=== PATIENT | female | born 1970 | race Caucasian/White ===

== ENCOUNTER 2017-05-04 08:00 | Outpatient (CLI) | payer OTHER ==
[2017-05-04 19:09] LABS: H. PYLORI IGG ANTIBODY Negative (Negative); HPYLORI NEG QC Negative (Negative); HPYLORI POS QC POSITIVE (Positive)
[2017-05-04 19:11] LABS: BASOPHILS # (AUTO) 0.1 10^3/uL (0.0-0.1); BASOPHILS % (AUTO) 0.9 %; EOSINOPHILS # (AUTO) 0.1 10^3/uL (0.0-0.7); HCT - HEMATOCRIT 37.6 % (37.0-47.0); HGB - HEMOGLOBIN 12.6 g/dL (12.0-16.0); LYMPHOCYTES # (AUTO) 1.9 10^3/uL (1.5-3.5); LYMPHOCYTES % (AUTO) 30.7 %; MEAN CORPUSCULAR HEMOGLOBIN 31.1 pg (27.0-31.0); MEAN CORPUSCULAR HGB CONC 33.7 g/dL (32.0-36.0); MEAN CORPUSCULAR VOLUME 92.5 fL (81.0-99.0); MEAN PLATELET VOLUME 9.1 fL (7.9-10.8); MONOCYTES # (AUTO) 0.5 10^3/uL (0.0-1.0); MONOCYTES % (AUTO) 7.8 %; NEUTROPHILS # (AUTO) 3.7 10^3/uL (1.5-6.6); NEUTROPHILS % (AUTO) 58.6 %; NUCLEATED RED BLOOD CELLS AUTO 0.1 /100WBC; RED BLOOD COUNT 4.06 10^6/uL (4.20-5.40); RED CELL DISTRIBUTION WIDTH 13.2 % (12.0-15.0); UNCORRECTED WHITE BLOOD COUNT 6.3 x10^3/uL; WHITE BLOOD COUNT 6.3 x10^3/uL (4.8-10.8)
[2017-05-04 19:20] LABS: ALBUMIN/GLOBULIN RATIO 1.2 (1.0-2.2); BILIRUBIN,TOTAL 1.8 mg/dL (0.2-1.0); CALCIUM 9.3 mg/dL (8.5-10.3); CREATININE 0.8 mg/dL (0.4-1.0); POTASSIUM 3.9 mmol/L (3.5-5.0); TOTAL PROTEIN 7.8 g/dL (6.7-8.2)
== END 2017-05-04 08:01 | disposition home or self-care (01) ==
LOC: LAB.WCP 08:00
PROVIDERS: ATTEND Family Medicine
DX: K30 Functional dyspepsia (principal); R30.0 Dysuria
CPT/HCPCS: 36415; 80053; 85025; 87339

== ENCOUNTER 2017-05-05 15:20 | Outpatient (CLI) | payer OTHER | END 2017-05-05 15:21 | disposition home or self-care (01) | LOC: LAB.R 15:20 | PROVIDERS: ATTEND Family Medicine | DX: R30.0 Dysuria (principal) | CPT/HCPCS: 87086 ==

== ENCOUNTER 2018-01-07 15:04 | Outpatient (CLI) | payer BC, OTHER ==
--- NOTE | 2018-01-07 20:58 | Ultrasound Report ---
EXAM: PELVIC ULTRASOUND EXAM DATE: 01/07/2018 03:23 PM. CLINICAL HISTORY: Pelvic and perineal pain. COMPARISON: None. TECHNIQUE: Realtime transabdominal pelvic scan performed to identify the uterus and adnexa and as an overview of other pelvic structures, followed by transvaginal scan to provide greater detail of the u terus and adnexa, with static image documentation. FINDINGS: Uterus: Anteverted position. 8.5 x 3.8 x 4.0 cm, volume 69 cc. Overall heterogeneous myometrial echot exture with a solitary posterior intramural myoma measuring 1.9 x 1.3 x 1.9 cm. Endometrium: 3 mm. Few tiny calcifications. No abnormal vascularity. Cervix: Multiple nabothian cysts. Avascular soft tissue structure in the endocervical canal measuring 0.6 x 0.5 x 0.6 cm. Right Ovary: 1.8 x 1.0 x 1.6 cm, volume 1.5 cc. Normal echotexture. Left Ovary: 2.8 x 1.8 x 1.9 cm, volume 5.0 cc. Normal echotexture. Free Fluid: None. Other: None. IMPRESSION: 1. Solitary larger intramural uterine myoma. 2. Suspected endocervical polyp. Recommend direct evaluation. 3. Unremarkable sonographic appearance of the ovaries. [facility] Referring Provider Line: [phone] SITE ID: [id number]
== END 2018-01-07 15:05 | disposition home or self-care (01) ==
LOC: DI 15:04
PROVIDERS: ATTEND Obstetrics & Gynecology
DX: R10.2 Pelvic and perineal pain (principal); D25.1 Intramural leiomyoma of uterus
CPT/HCPCS: 76830; 76856

== ENCOUNTER 2018-02-28 13:54 | Outpatient (CLI) | payer BC, OTHER | END 2018-02-28 13:55 | disposition home or self-care (01) | LOC: LAB.R 13:54 | PROVIDERS: ATTEND Nurse Practitioner Obstetrics & Gynecology | DX: R30.0 Dysuria (principal) | CPT/HCPCS: 87086 ==

== ENCOUNTER 2018-05-01 14:40 | Outpatient (CLI) | payer BC, OTHER ==
[2018-05-01 15:01] LABS: BASOPHILS # (AUTO) 0.1 10^3/uL (0.0-0.1); BASOPHILS % (AUTO) 0.9 %; EOSINOPHILS # (AUTO) 0.2 10^3/uL (0.0-0.7); EOSINOPHILS % (AUTO) 2.1 %; HGB - HEMOGLOBIN 12.5 g/dL (12.0-16.0); LYMPHOCYTES # (AUTO) 2.4 10^3/uL (1.5-3.5); MEAN CORPUSCULAR HEMOGLOBIN 31.4 pg (27.0-31.0); MEAN CORPUSCULAR HGB CONC 34.6 g/dL (32.0-36.0); MEAN CORPUSCULAR VOLUME 90.8 fL (81.0-99.0); MEAN PLATELET VOLUME 8.4 fL (7.9-10.8); MONOCYTES # (AUTO) 0.6 10^3/uL (0.0-1.0); MONOCYTES % (AUTO) 7.9 %; NEUTROPHILS # (AUTO) 4.3 10^3/uL (1.5-6.6); NEUTROPHILS % (AUTO) 57.1 %; PLT - PLATELET COUNT 179 10^3/uL (130-450); RED BLOOD COUNT 3.97 10^6/uL (4.20-5.40); RED CELL DISTRIBUTION WIDTH 13.6 % (12.0-15.0); WHITE BLOOD COUNT 7.5 x10^3/uL (4.8-10.8)
[2018-05-01 15:14] LABS: BILIRUBIN,URINE NEGATIVE (NEGATIVE); GLUCOSE, URINE (UA) NEGATIVE (NEGATIVE); KETONES,URINE (UA) NEGATIVE (NEGATIVE); LEUKOCYTE ESTERASE, URINE NEGATIVE (NEGATIVE); NITRITE,URINE NEGATIVE (NEGATIVE); OCCULT BLOOD,URINE SMALL (NEGATIVE); PH,URINE 5.5 PH (5.0-7.5); PROTEIN,URINE NEGATIVE (NEGATIVE); UROBILINOGEN,URINE 0.2 (NORMAL) E.U./dL (NORMAL)
[2018-05-01 15:21] LABS: CLARITY,URINE HAZY (CLEAR); HCG UR QUAL NEGATIVE
== END 2018-05-01 14:41 | disposition home or self-care (01) ==
LOC: LAB 14:40
PROVIDERS: ATTEND Obstetrics & Gynecology
DX: Z01.812 Encounter for preprocedural laboratory examination (principal); N94.4 Primary dysmenorrhea; R10.2 Pelvic and perineal pain; N92.0 Excessive and frequent menstruation with regular cycle
CPT/HCPCS: 36415; 81003; 81025; 85025

== ENCOUNTER 2018-05-03 07:00 | Day surgery (SDC) | payer BC, OTHER ==
--- NOTE | 2018-05-02 10:51 | PREOP HISTORY & PHYSICAL ---
DATE OF SERVICE: 05/03/2018 Physician: Philipp Kaufman MD DIAGNOSES 1. Pelvic pain; severe dysmenorrhea, failing medical treatment. 2. Intramural fibroid. 3. Endocervical nodule. 4. Desires sterilization. HISTORY OF PRESENT ILLNESS: Patient is a 48-year-old , 1, para 1 ( x1) woman who notes severe dysmenorrhea, scale 7/10 that interferes with her daily activities and ability to function. Additionally, she notes low back ache. She has regular menses that last for 5-6 days, but has 4 days of clots. The clots and associated heavy bleeding are disruptive, occasionally soaking through to her clothing. In the past, she had used combination oral contraceptives; however, due to her age status, this is no longer an option. For the pain, she has taken numerous NSAIDS including ibuprofen that gave some but not complete pain relief. She had used oxycodone ( from another provider) in the past that seemed to be effective, but narcotic therapy for her chronic pain is not recommended practice. She had an ultrasound in 03/2018 that documented a slightly enlarged uterus with a 1.9 x 1.3 x 1.9 solitary intramural fibroid. Additionally, there was a 0.6 cm endocervical nodule noted. There was no ovarian pathology. The endometrial stripe was 3 mm. Due to the small dimensions of the endometrial stripe, endometrial biopsy was not indicated. Bleeding is quite heavy in the first days of the menses and she saturates pads every 4 hours, making it difficult not to soil her clothing. Prior contraceptive measures include oral contraceptives, IUD, and patches. She has no abnormal Pap history, and her last Pap smear was in 2013, and reported as normal. Beyond her pelvic pain associated with menses, she notes cyclic right shoulder pain that is premenstrual and menstrual. It is a deep, but not mechanical pain. 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 She has been diagnosed in the past with impingement and arthritis. She mostly self- manages by exercise and stretch. Often the pain causes her to want to splint. She has not had a recent orthopedic evaluation or MRI. She was cautioned that laparoscopy is unlikely to find an origin or association with this right shoulder pain. 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 PAST MEDICAL HISTORY: Patient has no chronic disease history. ALLERGIES: SEASONAL ALLERGIES, POLLEN AND DUST. NO KNOWN DRUG ALLERGIES. MEDICATIONS 1. Ibuprofen. 2. Valtrex. PAST SURGICAL HISTORY: section in 2007, failure for the cervix to dilate during induction. Prior to that in 2006, she had an uneventful spontaneous . FAMILY HISTORY: Negative diabetes. Positive CVA. Paternal grandfather and paternal uncles hypertension. Paternal grandmother rheumatoid arthritis. No easy bleeding tendencies or thromboembolic disease. 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 Coffee drinker. REVIEW OF SYSTEMS CONSTITUTIONAL: Negative. PULMONARY: Negative. CARDIOVASCULAR: Negative. BREASTS: Negative. ENDOCRINE: Negative. GASTROINTESTINAL: Negative. MUSCULOSKELETAL: Back and shoulder pain as noted before. NEUROLOGIC: Negative. DERMATOLOGIC: Negative. HEMATOLOGIC/LYMPHATIC: Denies easy bleeding tendency or bruising. PHYSICAL EXAMINATION GENERAL: Alert, cooperative, pleasant demeanor, athletic frame. HEENT: Nonicteric sclerae. EOMI. Dentition in good repair. No thyromegaly. NECK: Supple. LUNGS: Clear to auscultation. CARDIAC: Regular. No murmur, no gallop. BREASTS: Deferred. ABDOMEN: Soft, nondistended, no organomegaly. No focal tenderness or rebound. GENITALIA: No lesions. Normal hair distribution. VAGINA: Old blood in vault. CERVIX: Closed, firm. UTERUS: 5-6 weeks' size, globular. ADNEXA: Normal right and left ovary. MUSCULOSKELETAL: Grossly intact. Moves all four extremities well. NEUROLOGIC: Grossly intact, cranial nerves intact. PSYCHOLOGIC: Normal demeanor. No anxiety or evident depression. LABORATORY DATA: Preop labs pending. ASSESSMENT: Patient has disruptive pelvic pain/dysmenorrhea coupled with heavy uterine bleeding. She has a known intramural fibroid, but on ultrasound, there is no submucosal disruption noted. Hysteroscopy will help define the fibroid and its possible relationship to her bleeding. Patient does not desire a hysterectomy. Therefore, endometrial ablation and myomectomy, if fibroid is found to have a submucosal component, is indicated. She is cautioned that her shoulder pain, though cyclic with her menses, is probably not directly caused by the menses, other than fluid retention and possible increased impingement. PLAN: We will perform a laparoscopy to do a bilateral salpingectomy, to meet her sterilization goals as well as cancer reduction. Her bleeding should be remedied with endometrial ablation using NovaSure. If there is a definite submucosal component to her fibroid, myomectomy will be performed. Additionally , if there is an endocervical polyp, this will be removed at the same time. Reviewed risks, benefits with the patient. [facility] brochures reviewed. All questions answered. TD: 05/02/2018 08:54 REGINA
[2018-05-03 07:31] LABS: HCG UR QUAL NEGATIVE
[2018-05-03] MEDS ORDERED: LACTATED RINGERS 1,000 ML IV ONE (07:35)
[2018-05-03] MEDS ORDERED: BUPIVACAINE 0.25%-EPI 1:200000 PF 30 ML VIAL ONE (08:12)
--- NOTE | 2018-05-03 08:16 | ANESTHESIA ---
Pre-Anesthesia VS, & Labs - Diagnosis Pelvic pain, dysmenorrhea, desires sterilization - Procedure Hysteroscopy with novasure endometrial ablation, Laparoscopy Vital Signs: Temp Pulse Resp BP Pulse Ox 36.8 C 16 120/68 99 05/03/18 07:22 05/03/18 07:22 05/03/18 07:22 05/03/18 07:22 Pulse 56 Height 5 ft 5 in Weight (kg) 68.4 kg - NPO >8 hours - Is Patient ?: No - Lab Results Lab results reviewed: Yes Other Lab Results: HCG negative Home Medications and Allergies Home Medications: Ambulatory Orders Medication Instructions Recorded Confirmed Ibuprofen [Motrin] 600 tab PO PRN PRN 05/03/18 05/03/18 Valacyclovir HCl [Valtrex] 500 mg PO 1-2XD 05/03/18 05/03/18 Allergies/Adverse Reactions: Allergies Allergy/AdvReac Type Severity Reaction Status Date / Time No Known Drug Allergies Allergy Verified 05/03/18 07:39 Anes History & Medical History - Anesthetic History Family history of Anesthesia Complications: Denies Family history of Malignant Hyperthermia: Denies - Medical History Cardiovascular: reports: None Pulmonary: reports: None Gastrointestinal: reports: None Urinary: reports: Kidney stones (History of kidney stones) Neuro: reports: None Musculoskeletal: reports: Chronic back pain Endocrine/Autoimmune: reports: None Blood Disorders: reports: None Skin: reports: None Smoking Status: Never smoker Psychosocial: reports: No issues indicated - Surgical History Gynecologic: section Exam General: Alert, Oriented x3, Cooperative, No acute distress Dental: WNL Mouth Openin Fingerbreadth Neck Mobility: Normal Mallampati classification: I Thyromental Distance: 4-6 cm Respiratory: Lungs clear, Normal breath sounds, No respiratory distress, No accessory muscle use Cardiovascular: Regular rate, Normal S1, Normal S2, No murmurs Mental/Cognitive Status: Alert/Oriented X3, Normal for patient Cognitive Status: Within normal limits Plan Anesthesia Type: General Consent for Procedure(s) Verified and Reviewed: Yes Code Status: Attempt Resuscitation ASA classification: 1-Healthy patient Is this case an emergency?: No
[2018-05-03] MEDS ORDERED: BUPIVACAINE 0.25%-EPI 1:200000 PF 30 ML VIAL SUBQ ONE ×2 (09:33)
[2018-05-03] MEDS ORDERED: ROCURONIUM 50 MG/5 ML VIAL IVP ONE (10:16)
[2018-05-03] MEDS ORDERED: ONDANSETRON 4 MG/2 ML VIAL IVP ONE (10:16)
[2018-05-03] MEDS ORDERED: PROPOFOL 200 MG/20 ML VIAL IVP ONE (10:16)
[2018-05-03] MEDS ORDERED: EPINEPHrine 1 MG/ML VIAL IV ONE (10:16)
[2018-05-03] MEDS ORDERED: MIDAZOLAM 2 MG/2 ML VIAL IVP ONE (10:16)
[2018-05-03] MEDS ORDERED: fentaNYL 250 MCG/5 ML VIAL IVP ONE (10:16)
[2018-05-03] MEDS ORDERED: KETOROLAC 30 MG/ML VIAL IVP ONE (10:16)
[2018-05-03] MEDS ORDERED: NEOSTIGMINE 1 MG/1 ML 10 ML MDV IVP ONE (10:16)
--- NOTE | 2018-05-03 10:46 | OPERATIVE REPORT ---
Operative Report - General Pre-Op Diagnosis: Pelvic pain/dysmenorrhea; Menorrhagia; US intramural leiomyoma & polyp Procedure Performed: Diagnostic Laparoscopy; Laparoscopic Bilateral Salpingectomy; Hysteroscopic polypectomy with Myossure; Endometrial ablation with NovaSure; Laparoscopic lysis of abdominal & pelvic pelvic adhesions: . Post Op Diagnosis: Evidence of prior endometriosis inclusive of implant on the right hemidiaph - Procedure Note Primary Surgeon: Philipp Kaufman MD, FACOG, FICS Anesthesia Provider: John Cantu MD Anesthesia Technique: General ET tube Pathology: Polypectomy/endometrial shavings; both tubes, right marked with suture IV Fluids (mL): 900 Estimated Blood Loss (mL): 10 Urine Output (mL): 225 Drain/Tube Type: Other (Calix catheter with clear urine) Complications: None
[2018-05-03 12:01] VITALS: BP 112/43
--- NOTE | 2018-05-03 20:04 | OPERATIVE REPORT ---
DATE OF SERVICE: 05/03/2018 Physician: Philipp Kaufman MD PATIENT'S PCP: Kolby Parr MD. PREOPERATIVE DIAGNOSES 1. Pelvic pain with severe dysmenorrhea not remedied by medical therapy. 2. Menorrhagia. 3. Ultrasound documented intramural leiomyoma and endocervical polyp. 4. Cyclic right shoulder pain. POSTOPERATIVE DIAGNOSES 1. Evidence of endometriosis inclusive of possible implant on right hemidiaphragm. 2. Abdominal and pelvic adhesions inclusive of uterus, bladder, ovaries, and tubes. 3. Submucosal fibroid. 3. Small polypoid growth at the bottom of the lower uterine segment close to superior endocervical os. 4. Nabothian cyst. PROCEDURES 1. Diagnostic laparoscopy. 2. Laparoscopic bilateral salpingectomy. 3. Hysteroscopic polypectomy with MyoSure. 4. Endometrial ablation with NovaSure. 5. Laparoscopic lysis of multiple abdominal and pelvic adhesions. SURGEON: Philipp Kaufman MD, FACOG, FICS. ANESTHESIA: John Holbrook MD. ANESTHESIA TYPE: General, ET tube. PATHOLOGY 1. Polypectomy and endometrial shavings. 2. Both tubes, right marked with suture. IV FLUIDS: 900 mL ESTIMATED BLOOD LOSS: 10 mL URINE OUTPUT: 225 clear. DRAINS: Calix with clear urine. COMPLICATIONS: None. FINDINGS 1. Exam of the external genitalia finds no lesions with normal hair distribution. Vagina has no significant cystorectocele. Remnants of a Cytotec capsule found. The cervix remains tightly closed, but much softer than on preop examination. Uterus is slightly enlarged and globular. On palpation, there are no masses. The uterus is slightly retroflexed. Uterine sounding is 6.5 cm. 2. Hysteroscopy finds the uterus to have a slight septate configuration. There are no submucosal leiomyoma. At the 4-o'clock position near the endocervical junction, there is a small polypoid growth approximately 0.5 cm. Endocervical canal has no obvious fibroids or polyps observed on hysteroscope entry. Post-endometrial ablation: Approximately 90 to 95% of the cavity was treated. Rectovaginal exam did not find any septal masses. 3. Laparoscopy found post- adhesions, as expected, between the bladder and anterior uterine surface. They were thick and dense. There was no endometriosis in the anterior cul-de-sac. In portions of the ovaries and tubes , there were bands of adhesions. The tubes themselves appeared to be open and fluffy. Close examination of the cul-de-sac finds no endometriosis implants. Uterosacral ligaments and ovarian fossa on both sides are clear of any pathology. Appendix appears to be normal. Examination of the upper abdomen finds some sclerotic changes in the liver, but no fatty liver. In the right hemidiaphragm, there are a series of 4 to 5 red smudge-like lesions suspect for endometriosis. Biopsy not taken due to safety concerns and possibility of safety concerns with a possible pneumothorax. TECHNIQUE: Prior to the procedure, the indications and her symptoms were reviewed, the exact procedures and her mechanics reviewed, as well as risks and benefits. Patient confirmed her desires to continue on with the procedures. There is no guarantee of a cure of her various pain complaints. Informed consent paperwork was signed. Patient was brought to the operating room and placed in supine position for administration of general anesthesia. She was uneventfully induced and intubated. She was placed in the low dorsal lithotomy position in [facility]. She was prepped and draped in the customary sterile fashion. Timeout briefing was done per protocol. A Calix was inserted. There was a delay in obtaining a 5 mm laparoscope, and so we proceeded with the hysteroscopy phase of the case first. Clamshell speculum was inserted in the vagina, opened, and the cervix was easily visualized. Anterior cervical lip was grasped with a single-tooth tenaculum. Total sounding was 6.5 cm. Serial application of Hegar probes was done uneventfully to dilate to Hegar size 6. The hysteroscope and fluid balance system was calibrated, and then a second calibration was required. Fluid balance was finished. Hysteroscope video system was then white balanced and calibrated. The hysteroscope was inserted under direct visualization through the endocervical canal. The expected intracervical nodule was not found. The uterine architecture was thoroughly explored. There was a septal growth at midpoint. In the 4-o'clock position in the lower uterine segment, there was a small polypoid region. MyoSure was brought to the field and the polypoid uneventfully shaved clean. The cavity was then lavaged in preparation for NovaSure. Hysteroscope was then removed. NovaSure was brought to the field and calibrated. The cavity width was 3.9 and a length of 6.7. The adjustments were made. The NovaSure screen was deployed, and after safety test activated, the NovaSure was cycled x1. After which, it was removed. Hysteroscopy evaluation found over 90 to 95% of the cavity was treated. At this point, endometrial ablation was terminated. HUMI was then uneventfully placed. Patient was placed in the low dorsal lithotomy position and prepared for laparoscopy. 5 mL of maintenance Marcaine 0.25% with epinephrine was placed under the umbilical skin fold, and a small incision made. Direct entry with a 5 mm trocar port was made. The previously promised 5 mm laparoscope was not available, and so the hysteroscope 30-degree lens was substituted. It was brought to the field and white balanced and calibrated. We ensured an intraabdominal entry, and abdomen was insufflated with CO2 gas under 12 mm pressure. Under direct visualization, right and left lower quadrant 5 mm visiports were placed. The abdomen was assessed and photographed. Peritubal, ovarian, and bladder adhesions were lysed with LigaSure. We next moved to salpingectomy. Each tube was identified with the ovary. The tube was placed on medial tension, and the mesosalpinx was thoroughly desiccated and divided using LigaSure. Postprocedure, operative sites were inspected and found to be hemostatically secure. Complete evaluation of the pelvis and upper abdomen was accomplished. In looking at the right hemidiaphragm, there were a series of red smudged lesions highly suggestive of red endometriosis. Due to the thinness of the diaphragm, safe biopsy could not be accomplished. We made preparations for exit. With patient still in Trendelenburg position, 700 mL of fluid was placed in the abdomen. All gas was vented. Trocars were removed under direct visualization without back bleeding. Skin was closed with interrupted subcuticular stitches of Monocryl 4-0. They were dressed with Dermabond. Additional Marcaine was placed into the wounds. The HUMI manipulator was removed. All sponge, needle, and instrument counts were confirmed as correct. Patient was uneventfully aroused from general anesthesia and taken to the recovery room in stable condition. We reviewed intraoperative events with the patient and photographs. Celebrex will be used for postoperative pain control and Percocet as needed. Patient did receive 30 mg of Toradol IV push during the procedure. All wound care and callback instructions were reviewed. TD: 05/03/2018 11:41 MTDD
== END 2018-05-03 07:01 | disposition home or self-care (01) ==
LOC: SDS 07:00
PROVIDERS: ATTEND Obstetrics & Gynecology
PROC: 0UB98ZZ Excision of Uterus, Via Natural or Artificial Opening Endoscopic (ICD-10-PCS; 2018-05-03)
PROC: 0U5B7ZZ Destruction of Endometrium, Via Natural or Artificial Opening (ICD-10-PCS; principal; 2018-05-03 08:15)
PROC: 0UB74ZZ Excision of Bilateral Fallopian Tubes, Percutaneous Endoscopic Approach (ICD-10-PCS; 2018-05-03 08:15)
DX: N80.9 Endometriosis, unspecified (principal); N94.6 Dysmenorrhea, unspecified; N92.0 Excessive and frequent menstruation with regular cycle; N84.0 Polyp of corpus uteri; N88.8 Other specified noninflammatory disorders of cervix uteri; N99.4 Postprocedural pelvic peritoneal adhesions; D25.0 Submucous leiomyoma of uterus; Z30.2 Encounter for sterilization; G89.29 Other chronic pain; M25.511 Pain in right shoulder; Q51.2 Other doubling of uterus; Z98.891 History of uterine scar from previous surgery; Z86.19 Personal history of other infectious and parasitic diseases
CPT/HCPCS: 58563; 58661; 81025; J0171; J3010; J7120

== ENCOUNTER 2018-08-09 08:00 | Outpatient (CLI) | payer BC, OTHER | END 2018-08-09 23:59 | LOC: LAB.R 08:00 | PROVIDERS: ATTEND Nurse Practitioner Obstetrics & Gynecology | DX: R30.0 Dysuria (principal) | CPT/HCPCS: 87086 ==

== ENCOUNTER 2018-08-11 17:18 | Outpatient (CLI) | payer BC, OTHER ==
--- NOTE | 2018-08-12 14:57 | MRI Report ---
Reason: RADICULOPATHY, CERVICAL REGION Procedure Date: 08/11/2018 Accession Number: [id number] / [id number] Procedure: MRI - Cervical Spine W/O CPT Code: FULL RESULT: EXAM: MRI CERVICAL SPINE WITHOUT CONTRAST EXAM DATE: 08/11/2018 05:34 PM. CLINICAL HISTORY: Worsening neck and right shoulder pain. Cervical radiculopathy. COMPARISONS: None. TECHNIQUE: Multiplanar, multisequence T1-weighted and fluid-sensitive sequences of the cervical spine without contrast. Other: None. FINDINGS: Cervical alignment is anatomic. Vertebral body height is preserved. There is no fracture. Marrow signal is normal. Cervical spinal cord signal is normal. No cerebellar tonsillar ectopia. Axial images demonstrate the following: C2-C3: No central or foraminal stenosis. C3-C4: No central or foraminal stenosis. C4-C5: Tiny midline disk protrusion. No central or foraminal stenosis. C5-C6: Mild diffuse disk bulge and moderate left and mild right uncovertebral hypertrophy lead to very mild left foraminal stenosis but no significant central or right foraminal stenosis. C6-C7: Small broad-based disk extrusion projects into the left lateral recess and medial margin of the left neural foramen and leads to minimal left foraminal stenosis. No central or right foraminal stenosis. C7-T1: Small broad-based disk extrusion projects into the left lateral recess but does not likely cause neurologic impingement. No right-sided central stenosis. No foraminal stenosis. IMPRESSION: 1. Tiny midline disk protrusion without central or foraminal stenosis at C4-C5. 2. Mild diffuse disk bulge and moderate left and mild right uncovertebral hypertrophy at C5-C6 lead to very mild left foraminal stenosis. 3. Small broad-based disk extrusion projecting into the left lateral recess at C6-C7 leads to minimal left foraminal stenosis. 4. Small broad-based disk extrusion at C7-T1 projects into the left lateral recess but does not appear to cause neurologic impingement. 4. No findings to explain right radicular symptoms. [facility]
--- NOTE | 2018-08-12 15:08 | MRI Report ---
Reason: RADICULOPATHY, CERVICAL REGION Procedure Date: 08/11/2018 Accession Number: [id number] / [id number] Procedure: MRI - Shoulder RT W/O CPT Code: FULL RESULT: EXAM: RIGHT SHOULDER MRI WITHOUT CONTRAST EXAM DATE: 08/11/2018 06:31 PM. CLINICAL HISTORY: RADICULOPATHY, CERVICAL REGION. COMPARISON: SHOULDER 3 VIEW RT 08/01/2018 3:57 PM. TECHNIQUE: Multiplanar, multisequence T1-weighted and fluid-sensitive sequences of the shoulder without contrast. Other: None. FINDINGS: Acromioclavicular Region: The acromion is type II. Minimal acromioclavicular osteoarthritis. The coracoacromial and coracoclavicular ligaments are intact. Mild subacromial/subdeltoid bursal fluid consistent with bursitis. Glenohumeral Region: No subluxation. No effusion or loose bodies. The articular cartilage is unremarkable. The glenohumeral ligaments and joint capsule are unremarkable. Bone Marrow: Small cyst/edema in the lesser tuberosity are presumably reactive to overlying subscapularis tendinopathy which will be discussed below. Labrum: The labrum is unremarkable on this nonarthrographic study. Musculature/Rotator Cuff: There is mild supraspinatus tendinosis. The infraspinatus and teres minor are normal. There is a tiny partial-thickness articular surface tear of the distal and superior subscapularis at the lesser tuberosity insertion. No edema or fatty atrophy. Biceps Tendon: The long head of the biceps tendon and biceps hilda are intact. Other: The subcutaneous tissues are unremarkable. IMPRESSION: 1. Low-grade partial thickness articular surface tear of the distal and superior subscapularis at the lesser tuberosity insertion with minimal subjacent degenerative marrow signal changes in the lesser tuberosity. 2. Mild supraspinatus tendinosis without tear. 3. Mild subacromial/subdeltoid bursitis. [facility] MUSCULOSKELETAL RADIOLOGY SECTION
== END 2018-08-11 17:19 | disposition home or self-care (01) ==
LOC: DI 17:18
PROVIDERS: ATTEND Physical Medicine & Rehabilitation
DX: M50.11 Cervical disc disorder with radiculopathy, high cervical region (principal); S43.491A Other sprain of right shoulder joint, initial encounter; M75.51 Bursitis of right shoulder
CPT/HCPCS: 72141

== ENCOUNTER 2018-09-22 08:00 | Outpatient (CLI) | payer BC, OTHER ==
[2018-09-22 18:07] LABS: BILIRUBIN,URINE NEGATIVE (NEGATIVE); GLUCOSE, URINE (UA) NEGATIVE (NEGATIVE); KETONES,URINE (UA) NEGATIVE (NEGATIVE); LEUKOCYTE ESTERASE, URINE NEGATIVE (NEGATIVE); NITRITE,URINE NEGATIVE (NEGATIVE); OCCULT BLOOD,URINE TRACE-LYSE (NEGATIVE); PH,URINE 6.5 PH (5.0-7.5); PROTEIN,URINE NEGATIVE (NEGATIVE); UROBILINOGEN,URINE 0.2 (NORMAL) E.U./dL (NORMAL)
[2018-09-22 18:10] LABS: CLARITY,URINE CLEAR (CLEAR)
== END 2018-09-22 23:59 | disposition home or self-care (01) ==
LOC: LAB.R 08:00
PROVIDERS: ATTEND Obstetrics & Gynecology
DX: R30.0 Dysuria (principal)
CPT/HCPCS: 81001; 81003; 87086

== ENCOUNTER 2019-08-13 07:00 | Outpatient (CLI) | payer BC, OTHER ==
[2019-08-13 16:11] LABS: BILIRUBIN,URINE NEGATIVE (NEGATIVE); GLUCOSE, URINE (UA) NEGATIVE (NEGATIVE); KETONES,URINE (UA) NEGATIVE (NEGATIVE); LEUKOCYTE ESTERASE, URINE NEGATIVE (NEGATIVE); NITRITE,URINE NEGATIVE (NEGATIVE); OCCULT BLOOD,URINE SMALL (NEGATIVE); PROTEIN,URINE NEGATIVE (NEGATIVE); UROBILINOGEN,URINE 0.2 (NORMAL) E.U./dL (NORMAL)
[2019-08-13 16:28] LABS: CLARITY,URINE CLEAR (CLEAR)
[2019-08-13 17:34] LABS: BACTERIA,URINE Many /HPF (None Seen); RBC,URINE 0-5 /HPF (0-5); SQUAMOUS EPITHELIAL CELL,UR FEW Squamous (<= Few)
== END 2019-08-13 23:59 | disposition home or self-care (01) ==
LOC: LAB.R 07:00
PROVIDERS: ATTEND Obstetrics & Gynecology
DX: N39.0 Urinary tract infection, site not specified (principal)
CPT/HCPCS: 81001; 81003; 87086

== ENCOUNTER 2019-09-07 13:30 | Outpatient (CLI) | payer BC, OTHER | END 2019-09-07 23:59 | disposition home or self-care (01) | LOC: LAB.R 13:30 | PROVIDERS: ATTEND Nurse Practitioner Family | DX: N39.0 Urinary tract infection, site not specified (principal) | CPT/HCPCS: 87086 ==

== ENCOUNTER 2019-11-16 15:35 | Outpatient (CLI) | payer OTHER ==
[2019-11-16] MEDS ORDERED: IOVERSOL 320 100 ML VIAL IVP ONE ×2 (15:42→16:10)
--- NOTE | 2019-11-17 01:04 | CT Report ---
Reason: MICROSPOCIC HEMATURIA Procedure Date: 11/16/2019 Accession Number: [id number] / [id number] Procedure: CT - IVP CPT Code: Final Report FULL RESULT: EXAM: CT ABDOMEN AND PELVIS WITHOUT AND WITH CONTRAST (CT IVP) EXAM DATE: 11/16/2019 04:28 PM. CLINICAL HISTORY: MICROSCOPIC HEMATURIA. COMPARISONS: None. TECHNIQUE: Routine helical imaging was performed through the kidneys, ureters and bladder in the precontrast, postcontrast and delayed phase. IV Contrast: 100 mL OPTIRAY 320. Reconstructions: Coronal and sagittal. In accordance with CT protocol optimization, one or more of the following dose reduction techniques were utilized for this exam: automated exposure control, adjustment of mA and/or KV based on patient size, or use of iterative reconstructive technique. FINDINGS: The lung bases are clear. The visible heart is normal in size. The liver, gallbladder, spleen, pancreas, and adrenal glands are within normal limits. There is no biliary dilatation. A 3 mm calculus is seen in the lower pole of the right kidney. 2 2 mm calculi are seen in the lower pole of the left kidney. No ureteral calculi are seen. There is no hydronephrosis. The kidneys enhance symmetrically. There is no evidence of renal mass. On the urographic phase images, there is a portion of the proximal right ureter and a portion of the distal left ureter that are not opacified as a result of peristalsis. There is no evidence of collecting system filling defect to suggest an underlying lesion. The bladder is normal. No bladder calculi or wall thickening is seen. No filling defect is seen on the urographic phase images. The intestines are normal in caliber and position. Stool is seen throughout the colon. The appendix is normal. There is no evidence of bowel obstruction, free intraperitoneal air, or ascites. No lymphadenopathy is seen. The uterus and adnexal structures are within normal limits. There is no free pelvic fluid. Phleboliths are seen in the pelvis. No acute osseous abnormality is seen. There are no suspicious lytic or blastic lesions. The visible spinal alignment is maintained. IMPRESSION: Small nonobstructing bilateral renal calculi without evidence of hydronephrosis. [facility]
== END 2019-11-16 15:36 | disposition home or self-care (01) ==
LOC: DI 15:35
PROVIDERS: ATTEND Urology
DX: N20.0 Calculus of kidney (principal); R31.29 Other microscopic hematuria
CPT/HCPCS: 36415; 74178; 82565; 84520; Q9967

== ENCOUNTER 2020-05-28 13:08 | Outpatient (CLI) | payer OTHER | END 2020-05-28 13:09 | disposition home or self-care (01) | LOC: COV 13:08 | PROVIDERS: ATTEND Family Medicine | DX: R50.9 Fever, unspecified (principal); R11.2 Nausea with vomiting, unspecified; Z20.828 Contact with and (suspected) exposure to other viral communicable diseases ==

== ENCOUNTER 2023-03-04 02:13 | Emergency (ER) | payer OTHER ==
--- NOTE | 2023-03-04 02:25 | ED Physician Documentation ---
PD HPI CHEST PAIN - Stated complaint Stated Complaint: CHEST PX - History obtained from History obtained from: Patient - Additional information Additional information: HPI from patient. Patient c/o irregular heart palpitations , onset while lying awake in bed approximately 1 hour [employer]. Denies chest pain tonight, although she has had occasional episodes of chest pain over past few months. She has had brief and self-limited palpitations in the past which she says felt like "flutter" palpitations, but has not been evaluated for these given their brief/self- limited nature. Tonight's palpitations feel different in that they are skipped-beat/irregular sensation and persistent. No exacerbating nor ameliorating factors. Review of Systems Cardiac: reports: Palpitations. denies: Chest pain / pressure, Pedal edema Respiratory: reports: Reviewed and negative GI: reports: Reviewed and negative PD PAST MEDICAL HISTORY - Past Medical History Cardiovascular: None Neuro: None GI: None : Kidney stones (History of kidney stones) - Present Medications Home Medications: Ambulatory Orders Medication Instructions Recorded Confirmed Ibuprofen [Motrin] 600 tab PO PRN PRN 05/03/18 05/03/18 Valacyclovir HCl [Valtrex] 500 mg PO 1-2XD 05/03/18 05/03/18 - Allergies Allergies/Adverse Reactions: Allergies Allergy/AdvReac Type Severity Reaction Status Date / Time No Known Drug Allergies Allergy Verified 05/03/18 07:39 - Social History Smoking Status: Never smoker PD ED PE NORMAL - Vitals Vital signs reviewed: Yes - General General: Alert and oriented X 3, No acute distress, Well developed/nourished - Cardiac Cardiac: No murmur - Respiratory Respiratory: No respiratory distress, Clear bilaterally - Abdomen Abdomen: Soft, Non tender - Extremities Extremities: No edema PD ED PE EXPANDED - Cardiac Cardiac: Irregularly irregular Results - Vitals Vitals: Vital Signs - 24 hr 03/04/23 03/04/23 02:30 05:56 Temperature 36.6 C Heart Rate 77 65 Respiratory 16 18 Rate Blood Pressure 147/98 H 136/93 H O2 Saturation 97 99 Oxygen O2 Source Room air - EKG (time done) No standard instances EKG releavant findings:: EKG personally interpreted by author of this note. Relevant findings are: Rate: Rate (enter#) Rhythm: Atrial fibrillation [place]: Normal QRS: Normal Ischemia: Normal ST segments - Labs Labs: Laboratory Tests 03/04/23 03/04/23 03/04/23 02:51 02:51 02:51 WBC 7.4 RBC 4.47 Hgb 13.6 Hct 39.3 MCV 87.9 MCH 30.4 MCHC 34.6 RDW 13.3 Plt Count 223 MPV 10.1 Neut # (Auto) 3.2 Lymph # (Auto) 3.3 [place] # (Auto) 0.6 Eos # (Auto) 0.2 Baso # (Auto) 0.1 Absolute Nucleated RBC 0.00 Nucleated RBC % 0.0 Sodium 140 Potassium 3.7 Chloride 105 Carbon Dioxide 26 Anion Gap 9.0 BUN 29 H Creatinine 0.9 Estimated GFR (MDRD) 66 L Glucose 103 H Calcium 9.6 Total Bilirubin 1.0 AST 20 ALT 20 Alkaline Phosphatase 82 Troponin I High Sens < 2.3 L Total Protein 8.5 H Albumin 4.7 Globulin 3.8 Albumin/Globulin Ratio 1.2 Lipase 32 - Rads (name of study) chest xray Relevant Findings:: Prelim report reviewed, See rad report PD Medical Decision Making - ED course Complexity details: reviewed results, re-evaluated patient, considered differential, d/w patient ED course: No concerning nor diagnostic findings on CBC, ER abdominal panel (mildly elevated BUN but normal creatinine noted). Normal hs-cTn. EKG shows atrial fibrillation but normal rate, and this is also noted on external relations manager (atrial fibrillation but normal rate). I discussed options for treatment; given risk of thromboembolic stroke in setting of atrial fibrillation , I recommended electrocardioversion. Other options would be anticoagulation and follow up. Lastly , she is given option of no treatment but made aware that this would represent a significant and reducible risk with one of the other two options. She agrees with electrocardioversion. Patient had returned from xray but not put back on external relations manager when I went in to review the consent form with her. I felt her radial pulse and the pulse is regular. She is put back on the external relations manager and is clearly in NSR with rate in the 70s. No further emergent testing nor intervention indicated at this time. We discussed return precautions and I advised her to seek follow up with her PMD. Departure - Departure Disposition: 01 Home, Self Care Clinical Impression: Paroxysmal atrial fibrillation Condition: Good Instructions: ED Afib Comments: There were no concerning or diagnostic findings on tonight's blood tests. The chest x-ray was normal. For much of your emergency department stay, you are clearly in an abnormal rhythm called atrial fibrillation. This diagnosis is reviewed elsewhere on doctors' hospital discharge sheets. Fortunately, towards the end of your ER stay, you converted back into a normal heart rhythm (this is called normal sinus rhythm). At this time, there are no further tests that are needed nor any specific treatment. However, I recommend you follow-up with your primary care provider for reevaluation, even if you do not feel the symptoms return; they might recommend referral to a bioinformaticist, but this is not always necessary and is at the discretion of your primary care provider. Discharge Date/Time: 03/04/23 05:57
[2023-03-04 02:58] LABS: BASOPHILS # (AUTO) 0.1 10^3/uL (0.0-0.1); BASOPHILS % (AUTO) 1.1 %; EOSINOPHILS # (AUTO) 0.2 10^3/uL (0.0-0.7); EOSINOPHILS % (AUTO) 2.8 %; HCT - HEMATOCRIT 39.3 % (37.0-47.0); HGB - HEMOGLOBIN 13.6 g/dL (12.0-16.0); LYMPHOCYTES # (AUTO) 3.3 10^3/uL (1.5-3.5); LYMPHOCYTES % (AUTO) 44.9 %; MEAN CORPUSCULAR HEMOGLOBIN 30.4 pg (27.0-31.0); MEAN CORPUSCULAR HGB CONC 34.6 g/dL (32.0-36.0); MEAN CORPUSCULAR VOLUME 87.9 fL (81.0-99.0); MEAN PLATELET VOLUME 10.1 fL (7.9-10.8); MONOCYTES # (AUTO) 0.6 10^3/uL (0.0-1.0); MONOCYTES % (AUTO) 7.7 %; NEUTROPHILS # (AUTO) 3.2 10^3/uL (1.5-6.6); NEUTROPHILS % (AUTO) 43.4 %; PLT - PLATELET COUNT 223 10^3/uL (130-450); RED BLOOD COUNT 4.47 10^6/uL (4.20-5.40); RED CELL DISTRIBUTION WIDTH 13.3 % (12.0-15.0); WHITE BLOOD COUNT 7.4 x10^3/uL (4.8-10.8)
[2023-03-04 03:07] LABS: ALBUMIN 4.7 g/dL (3.2-5.5); ALBUMIN/GLOBULIN RATIO 1.2 (1.0-2.2); CALCIUM 9.6 mg/dL (8.5-10.3); CREATININE 0.9 mg/dL (0.4-1.0); POTASSIUM 3.7 mmol/L (3.5-5.0); TOTAL PROTEIN 8.5 g/dL (6.7-8.2)
[2023-03-04] MEDS ORDERED: PROPOFOL 200 MG/20 ML VIAL IVP STA (04:35)
[2023-03-04] MEDS ORDERED: MORPHINE 2 MG/ML CARPUJECT IVP STA (04:35)
[2023-03-04 05:58] VITALS: BP 136/93
--- NOTE | 2023-03-04 08:42 | XRAY Report ---
PROCEDURE: Chest 2 View X-Ray INDICATIONS: chest pain TECHNIQUE: 2 views of the chest were acquired. COMPARISON: None. FINDINGS: Surgical changes and devices: None. Lungs and pleura: No pleural effusions or pneumothorax. Lungs are clear. Mediastinum: Mediastinal contours appear normal. Heart size is normal. Bones and chest wall: No suspicious bony lesions. Overlying soft tissues appear unremarkable. IMPRESSION: No acute radiographic abnormality. No significant discrepancy from the preliminary report. Reviewed by: Carrington Gallegos MD on 03/04/2023 8:41 AM PDT Approved by: Carrington Gallegos MD on 03/04/2023 8:41 AM PDT Station ID: [id number]
== END 2023-03-04 05:57 | disposition home or self-care (01) ==
LOC: ED 02:13
DX: I48.0 Paroxysmal atrial fibrillation (principal)
CPT/HCPCS: 36415; 80053; 83690; 84484; 85025; 93005; 99283; 99284